=== PATIENT | female | born 1995 | race Caucasian/White ===

== ENCOUNTER 2025-03-19 18:08 | Inpatient (IN) | payer BC ==
[2025-03-19] MEDS ORDERED: HYDROCODONE/APAP 7.5/325 MG TAB ONE (19:14)
[2025-03-19] MEDS ORDERED: LIDOCAINE 1% 20 ML MDV ONE (19:34)
--- NOTE | 2025-03-19 19:50 | RAD REPORT ---
EXAMINATION: XR Foot Right 3 View CLINICAL INDICATION: Female, 29 years old. [facility] MAIN FB heel? Bed Name: 3 TECHNIQUE: 3 view radiographs of the left foot were obtained. COMPARISON: No prior exam. FINDINGS: No evidence of fracture or dislocation. Elongated triangular radiodensity along the soft ti ssues of the plantar aspect of the heel, underlying the radiographic marker. Normal alignment. No evidence of arthropathy or other focal bone lesion. Soft tissues are unremarkable. No soft tissue swe lling. No significant degenerative changes. IMPRESSION: Elongated triangular foreign body as above.
[2025-03-19] MEDS ORDERED: CEFAZOLIN SODIUM 1 GM/VIAL ONE (21:28)
--- NOTE | 2025-03-19 21:36 | EDPHYS ---
Physician Documentation [facility] Name: Martell Frank Age: 29 yrs Sex: Female : 1995 Arrival Date: 03/19/2025 Time: 18:08 Bed 20 Private MD: ED Physician Chencho Lindsay HPI: 03/19 18:29 This 29 yrs old Female presents to ER via Ambulatory with complaints of Wound Check - sb4 foot. 18:29 Patient states that [place] the [place], in the ocean, stepped on sb4 something sharp, sustained a small puncture wound on the heel of her right foot causing it to bleed. Did not think much of it, but was still having a lot of pain 2 days later. Went to urgent care this morning, had an x-ray done, was told she had something residual lodged in her heel. States that she is unable to bear weight without a lot of pain. Was started on doxycycline this morning, states her tetanus shot is up-to-date. Historical: - Allergies: 18:14 No Known Allergies; ld1 - Home Meds: 18:14 None [Active]; ld1 - PMHx: 18:14 None; ld1 - PSHx: 18:14 None; ld1 - Immunization history:: Adult Immunizations up to date. - Infectious Disease History:: Denies. - Social history:: Smoking status: Patient denies any tobacco usage or history of. ROS: 18:29 Constitutional: Negative for fever, chills, and weight loss, sb4 18:29 Skin: Positive for puncture, of the heel of right foot, 18:30 MS/extremity: Positive for pain, of the heel of right foot, sb4 18:30 All other systems are negative, Exam: 18:30 Constitutional: This is a well developed, well nourished patient who is awake, alert, sb4 and in no acute distress. Head/Face: Normocephalic, atraumatic. Eyes: Extra-ocular motions intact. Periorbital areas with no swelling, redness, or edema. ENT: Mucous membranes moist. Respiratory: No increased work of breathing, no retractions or nasal flaring. 18:30 Skin: injury, puncture(s), that are superficial, of the heel of right foot, tenderness to palpation, swelling noted. Vital Signs: 18:15 BP 167 / 96; Pulse 89; Resp 18; Temp 97.8(TE); Pulse Ox 100% on R/A; Weight 63.96 kg; ld1 Height 5 ft. 4 in. ; Pain 9/10; 20:30 BP 157 / 95; Pulse 84; Resp 17; Pulse Ox 99% on R/A; rg5 18:15 Body Mass Index 24.20 (63.96 kg, 162.56 cm) ld1 18:15 Pain Scale: Adult ld1 Procedures: 21:29 Foreign Body Removal: unknown, from the right heel of right foot, by using a hemostat, sb4 incising to remove, using lidocaine 1% with epinephrine to anesthesize the area, The patient tolerated the removal well, unsuccessful. 5 mL of lidocaine with 1% epi injected to locally anesthetize the area. cleaned with Betadine by me. t shaped incision made with 11 blade. dissected subcutaneous tissue with hemostats. no foreign body identified. MDM: 18:10 Medical Screening Exam initiated sb4 21:32 Data reviewed: vital signs, nurses notes, radiologic studies, I have discussed the sb4 patient's presentation/case with the attending Emergency Department Physician;. 21:34 Counseling: I had a detailed discussion with the patient and/or guardian regarding the sb4 historical points, exam findings, and any diagnostic results supporting the discharge/admit diagnosis, radiology results, the need for further work-up and treatment in the hospital. 21:50 ED course: Foreign body removal was attempted by Dr. Sifuentes and I, both sb4 unsuccessfully. Spoke with general surgery who will perform foreign body removal under general anesthesia tomorrow afternoon. 03/19 21:27 Order name: CBC with Diff; Complete Time: 22:51 sb4 03/19 21:27 Order name: BMP; Complete Time: 22:25 sb4 03/19 21:27 Order name: Test, Serum; Complete Time: 22:23 sb4 03/19 21:27 Order name: PT-INR; Complete Time: 22:51 sb4 03/19 21:27 Order name: Ptt, Activated; Complete Time: 22:51 sb4 03/19 22:53 Order name: CBC with Automated Diff EDMS 03/19 22:53 Order name: CBC with Automated Diff EDMS 03/19 22:53 Order name: Comprehensive Metabolic Panel EDMI 03/19 22:53 Order name: Comprehensive Metabolic Panel [facility] 03/19 18:20 Order name: Foot Right 3 View XRAY; Complete Time: 20:05 sb4 03/19 21:19 Order name: Foot Right 2 View XRAY; Complete Time: 22:30 sp4 03/19 22:53 Order name: CONS Physician Consult [facility] 03/19 21:27 Order name: IV Start; Complete Time: 21:50 sb4 Administered Medications: 19:10 Drug: Hydrocodone-Acetaminophen PO (7.5 mg-325 mg) 1 tabs PO once Route: PO; rg5 20:16 Follow up: Response: No adverse reaction; Pain is decreased rg5 20:15 Drug: Lidocaine Infiltration (1 %) 20 ml 20 ml Infiltration once; to bedside {Note: rg5 given by provider.} Volume: 20 ml; Route: Infiltration; 21:45 Drug: ceFAZolin IVPB 1 grams IVPB once Route: IVPB; Site: right antecubital; rg5 22:41 Follow up: IV Status: Completed infusion; IV Intake: 10ml rg5 22:05 Drug: doxycycline 100 mg IV at calculated rate once Route: IV; Rate: calculated rate; rg5 Site: right antecubital; 22:41 Follow up: IV Status: Completed infusion; IV Intake: 25ml rg5 22:29 Drug: morphine IVP or IV 4 mg IVP once over 4 mins Route: IVP; Infused Over: 4 mins; rg5 Site: right antecubital; 22:42 Follow up: Response: No adverse reaction; Pain is decreased rg5 22:29 Drug: Ondansetron IVP 4 mg IVP once; over 2 minutes Route: IVP; Site: right antecubital;rg5 22:42 Follow up: Response: No adverse reaction rg5 Disposition Summary: 03/19/25 21:35 Hospitalization Ordered Notes: Hospitalization Status: Observation sb4 Provider: Vin Goncalves Condition: Stable sb4 Problem: new sb4 Symptoms: are unchanged sb4 Bed/Room Type: Standard sb4 Location: Intensive Care Unit(03/19/25 23:39) cg Room Assignment: 7-(03/19/25 23:39) cg Diagnosis - Puncture wound with foreign body, right foot sb4 Forms: - Medication Reconciliation Form sb4 - SBAR form sb4 - Leadership Thank You Letter sb4 Addendum: 03/22/2025 07:01 Co-signature as Attending Physician, Chencho Lindsay MD I reviewed the patient's care r n provided by the Advanced Practice Provider and agree with the diagnosis and treatment plan. Signatures: Dispatcher [employer] [facility] Chencho Lindsay MD MD rn Garcia, Cindy, RN RN cg Valeria Alonso RN RN ld1 Krayna Monet, NANNETTE PAJesús sb4 Ivone Wagner rv1 Hugh Sifuentes MD MD sp4 Tyshawn Fontanez RN RN rg5 Corrections: (The following items were deleted from the chart) 03/19 18:20 18:20 Foot Right 3 View+RAD.RAD.BRZ ordered. [facility] EDMS 18:30 18:29 Patient states that she was at the beach on Wednesday, in the ocean, stepped on sb4 something sharp, sustained a small puncture wound on the heel of her left foot causing it to bleed. Did not think much of it, but was still having a lot of pain 2 days later. Went to urgent care this morning, had an x-ray done, was told she had something residual lodged in her heel. States that she is unable to bear weight without a lot of pain. Was started on doxycycline this morning, states her tetanus shot is up-to-date. sb4 18:31 18:29 Skin: Positive for puncture, sb4 sb4 21: 21:28 CBC+H.LAB.BRZ ordered. EDMI EDMS 21: 21:28 BASIC METABOLIC PANEL+C.LAB.BRZ ordered. EDMI EDMS 21:28 21:28 TEST, SERUM+SC.LAB.BRZ ordered. EDMI EDMS 21:28 21:28 PROTIME (+INR)+COAG.LAB.BRZ ordered. EDMI EDMS 21:28 21:28 PTT, ACTIVATED+COAG.LAB.BRZ ordered. [facility] EDMS 21:50 21:29 Foreign Body Removal: unknown, from the right heel of right foot, by using a sb4 hemostat, incising to remove, using lidocaine 1% with epinephrine to anesthesize the area, The patient tolerated the removal well, unsuccessful, sb4 21:51 21:35 Telemetry/MedSurg (observation) sb4 rv1 21:51 21:35 sb4 rv1 23:39 21:51 [facility] ER HOLD rv1 cg 23:39 21:51 ERHOLD- rv1 cg 23:53 18:30 Skin: injury, puncture(s), that are superficial, of the heel of right foot, sb4 sb4 23:55 21:29 Foreign Body Removal: unknown, from the right heel of right foot, by using a sb4 hemostat, incising to remove, using lidocaine 1% with epinephrine to anesthesize the area, The patient tolerated the removal well, unsuccessful, sb4
--- NOTE | 2025-03-19 21:36 | ER ---
Nurse's Notes [facility] Name: Martell Frank Age: 29 yrs Sex: Female : 1995 Arrival Date: 03/19/2025 Time: 18:08 Bed 20 Private MD: Diagnosis: Puncture wound with foreign body, right foot Presentation: 03/19 18:15 Chief complaint: Patient states: Stepped on something at the beach on Wednesday. Went to ld1 urgent care today - reports right heel having two objects left inside wound. Sent to ER to see if it can be removed. Last tetanus shot 2 years ago. Pt on Doxycycline. Coronavirus screen: At this time, the client does not indicate any symptoms associated with coronavirus-19. Ebola Screen: No symptoms or risks identified at this time. Initial Sepsis Screen: Does the patient meet any 2 criteria? No. Patient's initial sepsis screen is negative. Does the patient have a suspected source of infection? No. Patient's initial sepsis screen is negative. Risk Assessment: Do you want to hurt yourself or someone else? Patient reports no desire to harm self or others. Onset of symptoms was March 19, 2025. 18:15 Method Of Arrival: Ambulatory ld1 18:15 Acuity: DENA 4 ld1 Triage Assessment: 18:15 General: Appears in no apparent distress. comfortable, Behavior is calm, cooperative, ld1 appropriate for age. Pain: Complains of pain in right foot Pain does not radiate. Pain currently is 9 out of 10 on a pain scale. Quality of pain is described as throbbing, Pain began suddenly, Is continuous. EENT: No signs and/or symptoms were reported regarding the EENT system. Neuro: Level of Consciousness is awake, alert, obeys commands, Oriented to person, place, time, situation. Cardiovascular: Capillary refill < 3 seconds Patient's skin is warm and dry. Respiratory: Airway is patent Respiratory effort is even, unlabored. GI: Abdomen is round non-distended. : No signs and/or symptoms were reported regarding the genitourinary system. Derm: No signs and/or symptoms reported regarding the dermatologic system. Musculoskeletal: No signs and/or symptoms reported regarding the musculoskeletal system. Historical: - Allergies: 18:14 No Known Allergies; ld1 - Home Meds: 18:14 None [Active]; ld1 - PMHx: 18:14 None; ld1 - PSHx: 18:14 None; ld1 - Immunization history:: Adult Immunizations up to date. - Infectious Disease History:: Denies. - Social history:: Smoking status: Patient denies any tobacco usage or history of. Screenin:50 [facility] ED Fall Risk Assessment (Adult) History of falling in the last 3 months, bp including since admission No falls in past 3 months (0 pts) Confusion or Disorientation No (0 pts) Intoxicated or Sedated No (0 pts) Impaired Gait No (0 pts) Mobility Assist Device Used No (0 pt) Altered Elimination No (0 pt) Score/Fall Risk Level 0 - 2 = Low Risk Oriented to surroundings. Abuse screen: Denies threats or abuse. Denies injuries from another. Nutritional screening: No deficits noted. Tuberculosis screening: No symptoms or risk factors identified. Assessment: 18:50 General: Appears in no apparent distress. uncomfortable, Behavior is calm, cooperative, bp appropriate for age. Pain: Complains of pain in heel of right foot. 19:10 Reassessment: No changes from previously documented assessment. Patient and/or family rg5 updated on plan of care and expected duration. Pain level reassessed. Patient is alert, oriented x 3, equal unlabored respirations, skin warm/dry/pink. General: Appears in no apparent distress. comfortable, Behavior is calm, cooperative, appropriate for age. Pain: Complains of pain in right foot Pain currently is 9 out of 10 on a pain scale. Quality of pain is described as aching. Neuro: Level of Consciousness is awake, alert, obeys commands. Cardiovascular: Denies chest pain, Patient's skin is warm and dry. Respiratory: No deficits noted. Respiratory effort is even, unlabored. GI: No signs and/or symptoms were reported involving the gastrointestinal system. : No signs and/or symptoms were reported regarding the genitourinary system. EENT: No signs and/or symptoms were reported regarding the EENT system. Derm: Skin is intact, Skin is dry, Skin is normal, Skin temperature is warm. Musculoskeletal: Circulation, motion, and sensation intact. Range of motion: intact in all extremities. 20:16 Reassessment: No changes from previously documented assessment. Patient and/or family rg5 updated on plan of care and expected duration. Pain level reassessed. Patient is alert, oriented x 3, equal unlabored respirations, skin warm/dry/pink. Vital Signs: 18:15 BP 167 / 96; Pulse 89; Resp 18; Temp 97.8(TE); Pulse Ox 100% on R/A; Weight 63.96 kg; ld1 Height 5 ft. 4 in. ; Pain 9/10; 20:30 BP 157 / 95; Pulse 84; Resp 17; Pulse Ox 99% on R/A; rg5 18:15 Body Mass Index 24.20 (63.96 kg, 162.56 cm) ld1 18:15 Pain Scale: Adult ld1 ED Course: 18:09 Patient arrived in ED. al6 18:10 Karyna Monet PA-C is PHCP. sb4 18:10 Chencho Lindsay MD is Attending Physician. sb4 18:15 Arm band placed on right wrist. ld1 18:16 Triage completed. ld1 18:50 Patient has correct armband on for positive identification. bp 18:51 Joe Mckay, ROBERTO is Primary Nurse. bp 19:03 Foot Right 3 View XRAY In Process Unspecified. EDMS 20:00 Assist provider with I \T\ D: of an abscess on Set up I\T\D tray. Performed by Karyna Monet rg 5 NANNETTE Patient tolerated. Inserted saline lock: 20 gauge in right antecubital area, using aseptic technique. Blood collected. Flushed with 10 mL NS. 21:34 Foot Right 2 View XRAY In Process Unspecified. EDMS 21:34 Vin Goncalves MD is Hospitalizing Provider. sb4 21:54 Provided Education on: needs for admmit. rg5 21:54 Patient admitted, IV remains in place. intact, No redness/swelling at site. rg5 Administered Medications: 19:10 Drug: Hydrocodone-Acetaminophen PO (7.5 mg-325 mg) 1 tabs PO once Route: PO; rg5 20:16 Follow up: Response: No adverse reaction; Pain is decreased rg5 20:15 Drug: Lidocaine Infiltration (1 %) 20 ml 20 ml Infiltration once; to bedside {Note: rg5 given by provider.} Volume: 20 ml; Route: Infiltration; 21:45 Drug: ceFAZolin IVPB 1 grams IVPB once Route: IVPB; Site: right antecubital; rg5 22:41 Follow up: IV Status: Completed infusion; IV Intake: 10ml rg5 22:05 Drug: doxycycline 100 mg IV at calculated rate once Route: IV; Rate: calculated rate; rg5 Site: right antecubital; 22:41 Follow up: IV Status: Completed infusion; IV Intake: 25ml rg5 22:29 Drug: morphine IVP or IV 4 mg IVP once over 4 mins Route: IVP; Infused Over: 4 mins; rg5 Site: right antecubital; 22:42 Follow up: Response: No adverse reaction; Pain is decreased rg5 22:29 Drug: Ondansetron IVP 4 mg IVP once; over 2 minutes Route: IVP; Site: right antecubital;rg5 22:42 Follow up: Response: No adverse reaction rg5 Medication: 18:50 VIS not applicable for this client. bp Intake: 22:41 IV: 10ml; Total: 10ml. rg5 22:41 IV: 25ml; Total: 35ml. rg5 Outcome: 21:35 Decision to Hospitalize by Provider. sb4 21:53 Admitted to ER Hold. Please see [facility] for further documentation. rg5 21:53 Condition: stable 21:53 Instructed on the need for admit, 03/20 00:00 Patient left the ED. rg5 Signatures: Dispatcher [employer] Joe Sharif, RN ROBERTO bp Valeria Alonso RN RN ld1 Karyna Monet PAJesús PAJesús sb4 Tyshawn Fontanez RN RN rg5 Tereza Contreras al6
[2025-03-19] MEDS: DOXYCYCLINE HYCLATE 100MG INJ ONE (21:40)
[2025-03-19 22:24] LABS: Anion Gap 8.5 mEq/L (5.0-15.0); Potassium 3.5 mEq/L (3.5-5.1)
--- NOTE | 2025-03-19 22:25 | RAD REPORT ---
EXAMINATION: XR Foot Right 2 View CLINICAL INDICATION: Female, 29 years old. [facility] MAIN foreign body Bed Name: 20 TECHNIQUE: 3 view radiographs of the right foot were obtained. COMPARISON: Right foot radiographs of earlier the same day at 1854 hours FINDINGS: Smaller radiopaque fragment along the plantar aspect of the heel closer to the base of the calcaneus is no longer visualized. Longer fragment closer to the skin surface measuring approximately 1.3 cm is unchanged in position. No evidence of fracture or dislocation. Normal alignme nt. No evidence of arthropathy or other focal bone lesion. Soft tissue swelling overlying the radiopaque fragment. IMPRESSION: Small radiopaque fragment closer to the base of the calcaneus cortex on surface is no longer visualiz ed. Larger fragment present more superficially is unchanged in position.
[2025-03-19] MEDS ORDERED: ONDANSETRON 4 MG/2 ML VIAL ONE (22:27)
[2025-03-19] MEDS ORDERED: MORPHINE 4 MG/ML SYR ONE (22:28)
[2025-03-19 22:44] LABS: Absolute Eosinophils 0.1 K/uL (0-0.5); Absolute Lymphocytes (CBC) 2.2 K/uL (0.7-4.9); Absolute Monocytes 0.5 K/uL (0.1-1.3); Absolute Neutrophil 4.9 K/uL (1.8-8.0); Basophils % 0.3 % (0-1.3); Eosinophils % 1.1 % (0-4.4); Hematocrit 38.7 % (36.0-45.0); Hemoglobin 13.5 g/dL (12.0-15.0); Lymphocytes % 28.5 % (15.3-44.8); MCH 31.2 pg (27.0-35.0); MCHC 34.8 g/dL (32.0-36.0); MCV 89.6 fL (80-100); MPV 6.4 fL (7.6-11.3); Monocytes % 6.8 % (3.3-12.3); Neutrophils % 63.3 % (41.7-73.7); Nucleated Red Blood Cells % 0.1 % (0-0); Platelets 384 thou/uL (152-406); RBC Red Blood Cell Count 4.32 M/uL (3.86-4.86); Red Cell Distribution Width 13.2 % (12.1-15.2)
[2025-03-19 22:48] LABS: PT Prothrombin Time 11.5 SECONDS (10-13.0); PTT, Activated Partial Thromb 28.1 SECONDS (27.2-37.4); Protime INR 1.01
[2025-03-19] MEDS ORDERED: ACETAMINOPHEN 500 MG TAB PO PRN (22:49)
--- NOTE | 2025-03-19 22:54 | P.HP ---
Certification for Inpatient Patient admitted to: Inpatient With expected LOS: >2 Midnights Patient will require the following post-hospital care: None Practitioner: I am a practitioner with admitting privileges, knowledge of patient current condition, hospital course, and medical plan of care. Services: Services provided to patient in accordance with Admission requirements found in Title 42 Section 412.3 of the Code of Federal Regulations Patient History Date of Service: 03/19/25 Reason for admission: FB in the foot History of Present Illness: Patient is very pleasant 29-year-old female who came to the hospital with a foreign body in her foot. She was trying to get it out but unfortunately she was unable to and in the emergency room they attempted to remove the foreign body but there were unsuccessful. Patient was walking on the beach barefoot and she caught something in her foot. It was really painful and as mentioned above she did try to take it out but when she was unsuccessful she came to the ER. Unfortunately, we were not able to remove it in the ER and she will be n.p.o. for surgical evaluation in the morning. Patient without medical history and denies any cardiac issues. Patient denies any pulmonary issues. Patient low risk for any cardiopulmonary complications. Allergies No Known Allergies Allergy (Unverified 03/20/25 02:49) - Past Medical/Surgical History Diabetic: No Past Medical History: Patient denies medical history Past Surgical History: Patient denies surgical history - Family History Father Family History: Reviewed- Non-Contributory - Social History Smoking Status: Never smoker Alcohol use: No CD- Drugs: No Review of Systems 10-point ROS is otherwise unremarkable Physical Examination - Vital Signs Temperature: 98 F Blood Pressure: 120/80 Pulse: 80 Respirations: 18 Pulse Ox (%): 97 - Physical Exam General: Alert, In no apparent distress, Oriented x3 HEENT: Atraumatic, PERRLA, Mucous membr. moist/pink, EOMI, Sclerae nonicteric Neck: Supple, 2+ carotid pulse no bruit, No LAD, Without JVD or thyroid abnormality Respiratory: Clear to auscultation bilaterally, Normal air movement Cardiovascular: Regular rate/rhythm, Normal S1 S2 Gastrointestinal: Normal bowel sounds, No tenderness Musculoskeletal: No tenderness Integumentary: No rashes, Skin breakdown, Tenderness/swelling (In the right foot), Erythema Neurological: Normal gait, Normal speech, Normal strength at 5/5 x4 extr, Normal tone, Normal affect Lymphatics: No axilla or inguinal lymphadenopathy - Studies Laboratory Data (last 24 hrs) 03/19/25 03/19/25 03/19/25 21:47 21:47 21:47 WBC 7.70 Hgb 13.5 Hct 38.7 Plt Count 384 PT 11.5 INR 1.01 APTT 28.1 Sodium 138 Potassium 3.5 BUN 10 Creatinine 0.85 Glucose 89 Assessment & Plan - Problems (Diagnosis) (1) Foreign body in foot Current Visit: Yes Status: Acute Qualifiers: Laterality: right - Plan Plan: 1. Patient will be n.p.o. for surgery evaluation in the morning to get the foreign body removed. Will continue with antibiotic therapies and she will need to be discharged on oral antibiotics and pain control along with topical ointment. Patient also has no medical history so she is very low risk for any cardiopulmonary complications. Will proceed with surgery and patient should be discharged after surgery as long as she is doing well clinically. Patient will be admitted for observation. Discharge Plan: Home Plan to discharge in: 24 Hours - Advance Directives Does patient have a Living Will: No Does patient have a Durable POA for Healthcare: No - Code Status/Comfort Care Code Status Assessed: Yes Code Status: Full Code Critical Care: No Time Spent Managing PTS Care (In Minutes): 45
[2025-03-19] MEDS: NA CHLORIDE 0.9% 1,000 ML IV SCH (23:00)
[2025-03-19] MEDS ORDERED: NA CHLORIDE 0.9% 1,000 ML ONE (23:28)
[2025-03-19 23:31] VITALS: BMI 24.0
[2025-03-20] MEDS: PIPER TAZO 3.375 GM in NA CHLORIDE 0.9% 100 ML IV SCH (03:01)
[2025-03-20] MEDS: MORPHINE 2 MG/ML SYR IV PRN (05:02)
[2025-03-20 05:10] LABS: Absolute Eosinophils 0.1 K/uL (0-0.5); Absolute Monocytes 0.5 K/uL (0.1-1.3); Absolute Neutrophil 3.8 K/uL (1.8-8.0); Basophils % 0.3 % (0-1.3); Eosinophils % 1.4 % (0-4.4); Hematocrit 36.3 % (36.0-45.0); Hemoglobin 12.6 g/dL (12.0-15.0); Lymphocytes % 30.9 % (15.3-44.8); MCH 31.4 pg (27.0-35.0); MCHC 34.6 g/dL (32.0-36.0); MCV 90.8 fL (80-100); MPV 6.2 fL (7.6-11.3); Monocytes % 7.9 % (3.3-12.3); Neutrophils % 59.5 % (41.7-73.7); Platelets 310 thou/uL (152-406); Red Cell Distribution Width 13.2 % (12.1-15.2)
[2025-03-20 05:35] LABS: Albumin 3.1 g/dL (3.4-5.0); Anion Gap 8.1 mEq/L (5.0-15.0); Bilirubin Total 0.4 mg/dL (0.2-1.0); Globulin 3.1 g/dL (2.3-3.5); Potassium 4.1 mEq/L (3.5-5.1); Protein, Total 6.2 g/dL (6.4-8.2)
[2025-03-20] MEDS: ONDANSETRON 4 MG/2 ML VIAL IV PRN (08:21)
[2025-03-20] MEDS: HYDROCODONE/APAP 10/325 TAB PO PRN (09:53)
--- NOTE | 2025-03-20 13:42 | P.PN ---
Subjective Date of Service: 03/20/25 Chief Complaint: FB in the foot Patient complaining of nausea. No fever. Physical Examination - Vital Signs Temperature: 98.1 F Blood Pressure: 136/76 Pulse: 78 Respirations: 16 Pulse Ox (%): 98 - Studies Laboratory Data (last 24 hrs) 03/19/25 03/19/25 03/19/25 21:47 21:47 21:47 WBC 7.70 Hgb 13.5 Hct 38.7 Plt Count 384 PT 11.5 INR 1.01 APTT 28.1 Sodium 138 Potassium 3.5 BUN 10 Creatinine 0.85 Glucose 89 Assessment And Plan - Plan Physical examination General: Alert and oriented x3, NAD, HEENT: Conjunctiva not pale, anicteric sclera Neck: Supple, no elevated JVD Heart: Heart sounds 1 and 2 normal, regular rhythm, normal rate, no pedal edema Lungs: Clear to auscultation bilaterally, adequate breath sounds bilaterally, no rhonchi or crackles. Abdomen: Soft, nondistended, nontender, normal bowel sounds. Extremities: No tenderness, no deformity Skin: Normal skin turgor, no rash, wound-healed of right foot. Neuro: No focal motor deficit. Normal speech. Psychiatry: Normal mood, no agitation. Diagnosis Foreign body in foot Continue empiric antibiotics. Surgery Dr. Ramírez has evaluated patient and planning foreign body removal under anesthesia today. Analgesics as needed Antiemetics as needed.
[2025-03-20] MEDS: PROMETHAZINE INJ 25 MG/ML AMP IV PRN (13:49)
[2025-03-20] MEDS: SCOPOLAMINE HYDROBROMIDE PATCH TD ONE (17:52)
[2025-03-20] MEDS ORDERED: propofoL 200 MG/20 ML VIAL IV ONE (17:54)
[2025-03-20] MEDS ORDERED: ONDANSETRON 4 MG/2 ML VIAL ONE (17:54)
[2025-03-20] MEDS ORDERED: MIDAZOLAM HCL 2 MG/2 ML INJ ONE (17:54)
[2025-03-20] MEDS ORDERED: FENTANYL CITR 100 MCG/2 ML ONE (17:54)
[2025-03-20] MEDS ORDERED: LIDOCAINE 2% MPF 5 ML VIAL ONE (17:54)
[2025-03-20] MEDS ORDERED: dexAMETHasone 4 MG/ML VIAL ONE (18:20)
[2025-03-20] MEDS: LIDOCAINE HCL/EPINEPHRINE 20 ML MDV ONE (18:37)
--- NOTE | 2025-03-20 19:36 | P.OP ---
Preoperative diagnosis: Right Foot Foreign Body Postoperative diagnosis: Right Foot Foreign Body Primary procedure: Excision of Several Fragments of Foreign Body Secondary procedure: Flouroscopy utilized Anesthesia: GETA + Local Estimated blood loss: <5cc Specimen: foreign body Findings: sharp fragments of foreign body Complications: None Transferred to: Recovery Room Condition: Good
[2025-03-20] MEDS: MEPERIDINE HCL 25 MG/ML SYR ONE (19:57)
--- NOTE | 2025-03-20 19:58 | RAD REPORT ---
EXAM: Fluoroscopy use, Foot Right 2 View HISTORY: FB REMOVAL COMPARISON: 03/19/2025 radiograph FINDINGS: A total of 128 images were sent to PACS, during a fluoroscopically guided foreign body marina tammy. No radiologist was involved in protocoling or performance of the study, and no radiologist was present for the duration of the procedure. No interpretation of the saved images will be provided. Total fluoroscopy time: 2.5 minutes. IMPRESSION: Documentation of fluoroscopy use as above.
[2025-03-20] MEDS: HYDROMORPHONE HCL 1 MG/ML INJ ONE (20:13)
[2025-03-21 04:00] VITALS: O2SAT 96
--- NOTE | 2025-03-21 05:38 | OP ---
Date of Procedure: 03/20/2025 Surgeon: Rui Ramírez MD, Preoperative Diagnosis: Right foot foreign body. Postoperative Diagnosis: Right foot foreign body. Procedure Performed: Excision of several fragments of foreign body from right heel. Fluoroscopy was utilized. Anesthesia: General endotracheal plus local 1% lidocaine with epinephrine. Estimated Blood Loss: Less than 5 cc. Specimens: Foreign body. Findings: Sharp multiple fragments of foreign body in the right heel implanted adjacent to calcaneus and in soft tissue plantar fascia. Complications: None. Disposition: The patient was transferred to recovery room in good condition. Brief History Of Present Illness: The patient is a 29-year-old woman who presents after [place], having an object impaled her in her right heel. She came to the emergency room. She was s een by the ER physician who ultimately made an incision in the area and tried to retrieve the foreign body unsuccessfully in a cruciate-type incision. As such, I was consulted to see the patient for re moval of this foreign body. Procedure In Detail: After informed consent was obtained, the patient was brought to the operating r oom, prepped and draped in usual sterile fashion. After adequate anesthesia was achieved, I anesthet ized the area of concern. Using fluoroscopic guidance, I was able to track down to a large fragment of sharp bony type foreign body in the right heel. This was removed. Fluoroscopic interpretation wa s noted again with a small additional fragment adjacent to the calcaneus. Using localization, I was able to dissect down and remove some plantar fascia affected by this foreign body, ultimately removin g it and x-ray confirmed removal of all foreign bodies at this point. I then irrigated the area. No hemostatic measures required. I partially reapproximated the edges of the wound using 3-0 nylon sut ures, and the central portion was packed with iodoform quarter-inch packing, and a sterile dressing w as placed over top. The patient tolerated procedure without incident or complication, transferred to PACU in good condition. All counts were correct at the end of case. TK/MODL Voice ID: [id number] Report ID: [id number]
[2025-03-21 09:42] VITALS: BP 132/80; TEMP 97.7
--- NOTE | 2025-03-21 20:15 | P.DS ---
Admission Date: 03/20/25 Discharge Date: 03/21/25 Disposition: ROUTINE DISCHARGE Discharge Condition: GOOD Reason for Admission: FB in the foot Brief History of Present Illness: 29-year-old woman came to the hospital with a foreign body in her foot. She was trying to get it out but unfortunately she was unable to and in the emergency room they attempted to remove the foreign body but there were unsuccessful. Patient [place] the [place] barefoot and she caught something in her foot. Patient without medical history and denies any cardiac issues. Foot x-ray confirmed foreign body in the right foot. Patient was hospitalized for surgical removal of the foreign body in her foot. Hospital Course: Diagnosis: Foreign body in the right foot Patient admitted to the medical floor and started on antibiotics. She was seen and evaluated by general surgery Dr. Ramírez who removed the foreign body in the OR. Patient monitored overnight for pain control and wound dressing. Patient seen and evaluated this morning by surgery Dr. Ramírez and she is deemed stable for discharge. She is discharged with oral antibiotic-Levaquin and analgesics. Patient states she was visiting from [place]. She states that she will follow-up with her PCP regarding further management of her right foot wound. Vital Signs/Physical Exam: Temp Pulse Resp BP Pulse Ox 97.7 F 94 H 17 132/80 99 03/21/25 08:00 03/21/25 08:00 03/21/25 08:00 03/21/25 08:00 03/21/25 08:00 General: Alert, In no apparent distress, Oriented x3 HEENT: Mucous membr. moist/pink, Sclerae nonicteric Neck: JVD not distended Respiratory: Clear to auscultation bilaterally, Normal air movement Cardiovascular: No edema, Regular rate/rhythm, Normal S1 S2 Gastrointestinal: Normal bowel sounds, Soft and benign, Non-distended Musculoskeletal: No swelling Integumentary: Other (Right foot sole wound with clean dressing) Neurological: Normal speech, Normal strength at 5/5 x4 extr Laboratory Data at Discharge: WBC 6.40 thou/uL (4.3-10.9) 03/20/25 04:52 Hgb 12.6 g/dL (12.0-15.0) 03/20/25 04:52 Hct 36.3 % (36.0-45.0) 03/20/25 04:52 Plt Count 310 thou/uL (152-406) 03/20/25 04:52 PT 11.5 SECONDS (10-13.0) 03/19/25 21:47 INR 1.01 03/19/25 21:47 APTT 28.1 SECONDS (27.2-37.4) 03/19/25 21:47 Sodium 141 mEq/L (136-145) 03/20/25 04:52 Potassium 4.1 mEq/L (3.5-5.1) D 03/20/25 04:52 BUN 12 mg/dL (7-18) 03/20/25 04:52 Creatinine 0.73 mg/dL (0.55-1.02) 03/20/25 04:52 Glucose 94 mg/dL (74-106) 03/20/25 04:52 Total Bilirubin 0.4 mg/dL (0.2-1.0) 03/20/25 04:52 AST 23 U/L (15-37) 03/20/25 04:52 ALT 45 U/L (13-56) 03/20/25 04:52 Alkaline Phosphatase 61 U/L (45-117) 03/20/25 04:52 Home Medications: Doxycycline Hyclate 100 mg PO BID 5 Days #10 cap 03/21/25 Hydrocodone 10/APAP 325 [Java 10/325] 1 tab PO Q6H PRN #30 tab 03/21/25 levoFLOXacin [Levaquin*] 250 mg PO DAILY #5 tab 03/21/25 New Medications: Doxycycline Hyclate 100 mg PO BID 5 Days #10 cap levoFLOXacin [Levaquin*] 250 mg PO DAILY #5 tab Hydrocodone 10/APAP 325 [Java 10/325] 1 tab PO Q6H PRN #30 tab PRN Reason: Pain Physician Discharge Instructions: PROBLEM: Patient was admitted to the hospital for foreign body in her foot. She had stepped [place] something at the beach. She underwent right foot foreign body removal on 03/20 with general surgery. Multiple sharp fragments of foreign body were removed. Patient is done well postoperatively and is stable for discharge and outpatient follow-up. GOAL: Wound healing INSTRUCTIONS:Wound care instructions as follows Remove all packing, irrigate wound with sterile saline then repacked with quarter inch iodoform packing. Wrap with dry gauze, Kerlix, Avel and patient is to be nonweightbearing on that extremity for now. Patient is here from out of [facility], prescriptions will be sent to local pharmacy for pain medications and antibiotics. She will need to follow-up with a doctor back in [place] when she gets home. Diet: as tolerated Activity: Non weight bearing to R foot DME DME: Date Ordered: Name of Company: [employer] Services Needed: Name of Company: Date or Referral: IMMUNIZATION Influenza Vaccine Indicated: No Influenza Vaccine Given: Date Given: Pneumonia Vaccine Indicated: No Pneumonia Vaccine Given: Date Given: Patient was admitted to the hospital for foreign body in her foot. She had stepped on something at the beach. She underwent right foot foreign body removal on 03/20 with general surgery. Multiple sharp fragments of foreign body were removed. Patient is done well postoperatively and is stable for discharge and outpatient follow-up. Wound care instructions as follows Remove all packing, irrigate wound with sterile saline then repacked with quarter inch iodoform packing. Wrap with dry gauze, Kerlix, Avel and patient is to be nonweightbearing on that extremity for now. Patient is here from out of town, prescriptions will be sent to local pharmacy for pain medications and antibiotics. She will need to follow-up with a doctor back in [place] when she gets home. Followup: [facility] [Primary Care Provider] - 1 Week Time spent managing pt's care (in minutes): 34
== END 2025-03-21 12:35 | disposition home or self-care (01) | DRG 903 ==
LOC: ER 18:08 → ERHOLD 22:49 → 3RD-ICU 23:56 → OBSVTOIN 03-20 19:40
PROVIDERS: ADMIT Hospitalist; ATTEND Internal Medicine
PROC: 0JCQ0ZZ Extirpation of Matter from Right Foot Subcutaneous Tissue and Fascia, Open Approach (ICD-10-PCS; 2025-03-20)
PROC: 0JBQ0ZZ Excision of Right Foot Subcutaneous Tissue and Fascia, Open Approach (ICD-10-PCS; principal; 2025-03-20 19:15)
DX: S91.341A Puncture wound with foreign body, right foot, initial encounter (principal)
CPT/HCPCS: 36415; 80048; 80053; 84703; 85025; 85610; 85730; 88300; 96365; 96375; 99285; G0378; J0690; J1100; J1171; J2003; J2175; J2250; J2270; J2405; J2543; J2550; J2704; J3010; J7030